=== PATIENT | female | born 1990 | race Caucasian/White ===

== ENCOUNTER 2018-10-11 18:20 | Inpatient (IN) ==
[2018-10-11 22:23] LABS: Apearance,Urine CLEAR (Clear); Bilirubin,Urine Negative (Negative); Blood, Urine Negative (Negative); Glucose,Urine (UA) Negative (Negative); Ketones,Urine Negative (Negative); Mucus,Urine Occasional /LPF (Occasional); Nitrite,Urine Positive (Negative); Protein,Urine Negative; RBC,Urine <1 /HPF (0-4); Urine Color Amber (Yellow); Urine Specific Gravity 1.013 (1.001-1.035); WBC,Urine <1 /HPF (0-6)
[2018-10-11] MEDS ORDERED: MORPHINE 4 MG/1 ML VIAL IM STA (22:28)
[2018-10-11] MEDS ORDERED: SODIUM CHLORIDE 0.9% 1,000 ML IV STA (22:28)
[2018-10-11] MEDS ORDERED: ONDANSETRON 4 MG/2 ML VIAL IV STA (22:28)
[2018-10-11 23:28] LABS: Basophils % 0.3 % (0.0-0.8); Eosinophils # 1.8 10*3/uL (0.0-0.87); Eosinophils % 15.4 % (0.00-10.9); Hematocrit 28.5 VOL% (35.7-47.0); Immature Granulocytes % 0.4 %; Immature Granulocytes Absolute 0.05 #; Lymphocytes # 2.2 10*3/uL (1.4-4.0); Lymphocytes % 18.8 % (21.3-54.2); Mean Corpuscular HGB Conc 31.6 GM/DL (32-36); Mean Corpuscular Volume 85.6 FL (87-102); Mean Platelet Volume 9.1 FL (9.6-12.0); Monocytes % 5.9 % (1.7-12.7); Neutrophils % 59.2 % (38.7-73.9); Platelet Count 363 T/CUMM (130-400); Red Blood Count 3.33 MC/CUMM (3.8-5.5); Red Cell Distribution Width 14.1 % (9.3-17.3); White Blood Count 11.8 T/CUMM (4-12)
[2018-10-11 23:45] LABS: PT Patient Result 10.4 SECS (9.6-12.2); Partial Thromboplastin Time 26.2 SECS (20.8-36.0)
[2018-10-11 23:49] LABS: Alanine Aminotransferase 15 U/L (13-56); Albumin 2.9 G/DL (3.4-5.0); Alkaline Phosphatase 67 U/L (45-117); Aspartate Amino Transferase 12 U/L (0-37); Bilirubin,Total < 0.39 MG/DL (0.2-1.0); Blood Urea Nitrogen 9 MG/DL (7-18); Calcium 8.5 MG/DL (8.5-10.1); Glucose 84 MG/DL (74-106); Osmolality,Calculated 274.5 MOS/KG (273-304); Total Protein 6.3 G/DL (6.4-8.3)
[2018-10-12 00:25] LABS: Anisocytosis 1+; Eosinophils 18 % (0-10); Lymphocytes 24 % (20-55); Ovalocytes Slight; Platelet Estimate Adequate; Segmented Neutrophils 51 % (50-85); Total Cells Counted 100
[2018-10-12] MEDS ORDERED: METOCLOPRAMIDE 10 MG/2 ML VIAL IV STA (00:25)
[2018-10-12] MEDS ORDERED: PANTOPRAZOLE 40 MG VIAL IV STA (00:25)
[2018-10-12] MEDS ORDERED: cefTRIAXone 1,000 MG in SYRINGE 1 EACH IV SCH (03:30)
[2018-10-12] MEDS ORDERED: ONDANSETRON 4 MG/2 ML VIAL IV PRN (03:51)
[2018-10-12] MEDS ORDERED: NICOTINE 21 MG/24 HR PATCH TRANSDERM PRN (03:51)
[2018-10-12] MEDS ORDERED: MORPHINE 4 MG/1 ML VIAL IV PRN (03:51)
[2018-10-12] MEDS ORDERED: PANTOPRAZOLE INJ 200 MG in SODIUM CHLORIDE 0.9% 250 ML IV SCH (04:00)
[2018-10-12] MEDS ORDERED: SODIUM CHLORIDE 0.9% 1,000 ML IV STA (04:57)
[2018-10-12] MEDS ORDERED: PNEUMOCOCCAL VACCINE (13 VALENT) 0.5 ML SYRINGE IM ONE (06:14)
[2018-10-12] MEDS: metroNIDAZOLE INJ 500 MG in PREMIX 1 EACH IV SCH ×3 (06:38→21:01)
[2018-10-12 06:48] LABS: Basophils % 0.3 % (0.0-0.8); Eosinophils # 1.8 10*3/uL (0.0-0.87); Eosinophils % 20.1 % (0.00-10.9); Hematocrit 27.7 VOL% (35.7-47.0); Hemoglobin 8.7 GM/DL (12.0-16.0); Immature Granulocytes % 0.2 %; Immature Granulocytes Absolute 0.02 #; Lymphocytes # 2.3 10*3/uL (1.4-4.0); Mean Corpuscular HGB Conc 31.4 GM/DL (32-36); Mean Corpuscular Volume 87.4 FL (87-102); Mean Platelet Volume 9.3 FL (9.6-12.0); Monocytes % 6.7 % (1.7-12.7); Neutrophils % 46.7 % (38.7-73.9); Platelet Count 350 T/CUMM (130-400); Red Blood Count 3.17 MC/CUMM (3.8-5.5); Red Cell Distribution Width 14.2 % (9.3-17.3); White Blood Count 8.8 T/CUMM (4-12)
[2018-10-12 07:15] LABS: Eosinophils 18 % (0-10); Hypochromasia 1+; Lymphocytes 28 % (20-55); Platelet Estimate Adequate; Segmented Neutrophils 52 % (50-85); Total Cells Counted 100
[2018-10-12] MEDS ORDERED: ACETAMINOPHEN 325 MG TABLET PO PRN (20:10)
[2018-10-12] MEDS: PANTOPRAZOLE 40 MG VIAL IV SCH (20:38)
[2018-10-12] MEDS: CLARITHROMYCIN 500 MG TABLET PO SCH (21:01)
[2018-10-12] MEDS: AMOXICILLIN 500 MG CAPSULE PO SCH (21:01)
[2018-10-13 05:22] LABS: Basophils % 0.6 % (0.0-0.8); Eosinophils # 1.6 10*3/uL (0.0-0.87); Eosinophils % 25.9 % (0.00-10.9); Hematocrit 26.4 VOL% (35.7-47.0); Hemoglobin 8.3 GM/DL (12.0-16.0); Immature Granulocytes % 0.3 %; Immature Granulocytes Absolute 0.02 #; Lymphocytes % 32.2 % (21.3-54.2); Mean Corpuscular HGB Conc 31.4 GM/DL (32-36); Mean Corpuscular Volume 86.6 FL (87-102); Mean Platelet Volume 9.4 FL (9.6-12.0); Monocytes % 7.3 % (1.7-12.7); Neutrophils % 33.7 % (38.7-73.9); Platelet Count 317 T/CUMM (130-400); Red Blood Count 3.05 MC/CUMM (3.8-5.5); White Blood Count 6.3 T/CUMM (4-12)
[2018-10-13 05:43] LABS: Eosinophils 17 % (0-10); Hypochromasia 1+; Lymphocytes 31 % (20-55); Platelet Estimate Adequate; Segmented Neutrophils 49 % (50-85); Total Cells Counted 100
[2018-10-13 06:15] LABS: Albumin 2.6 G/DL (3.4-5.0); Bilirubin,Total 0.6 MG/DL (0.2-1.0); Calcium 8.4 MG/DL (8.5-10.1); Osmolality,Calculated 282.8 MOS/KG (273-304); Total Protein 5.7 G/DL (6.4-8.3)
[2018-10-13] MEDS ORDERED: LACTATED RINGERS 1,000 ML IV SCH (08:00)
[2018-10-13] MEDS ORDERED: metroNIDAZOLE 500 MG TABLET PO SCH (09:00)
[2018-10-13] MEDS ORDERED: PROPOFOL 200 MG/20 ML VIAL IV ONE (09:30)
[2018-10-13] MEDS ORDERED: LIDOCAINE 2% 5 ML VIAL ONE (09:30)
[2018-10-13] MEDS: CLARITHROMYCIN 500 MG TABLET PO SCH (14:57)
[2018-10-13] MEDS: AMOXICILLIN 500 MG CAPSULE PO SCH (14:57)
[2018-10-13] MEDS: PANTOPRAZOLE 40 MG VIAL IV SCH (14:57)
[2018-10-13 15:55] VITALS: BP 122/77
== END 2018-10-13 16:45 | disposition home or self-care (01) | DRG 384 ==
LOC: N.ED 18:20 → N.EDINP 10-12 03:51 → N.2E 10-12 05:20
PROVIDERS: ADMIT Internal Medicine; ATTEND Internal Medicine